=== PATIENT | female | born 1970 | race Caucasian/White ===

== ENCOUNTER 2021-02-05 08:13 | Day surgery (SDC) | payer BC ==
[2021-02-03 09:52] VITALS: BMI 24.1
[2021-02-05] MEDS ORDERED: LIDOCAINE HCL/PF 2% SDV 5ML VIAL ONE (08:25)
[2021-02-05] MEDS ORDERED: PROPOFOL 20 ML ONE ×2 (08:25)
[2021-02-05 11:25] VITALS: BP 107/78; TEMP 97.7
[2021-02-05 11:28] VITALS: PULSE 72
== END 2021-02-05 11:20 | disposition home or self-care (01) ==
LOC: FASU-ENDO 08:13
PROVIDERS: ATTEND Internal Medicine Gastroenterology
PROC: 0DJD8ZZ Inspection of Lower Intestinal Tract, Via Natural or Artificial Opening Endoscopic (ICD-10-PCS; principal; 2021-02-05 10:20)
DX: Z12.11 Encounter for screening for malignant neoplasm of colon (principal)
CPT/HCPCS: 81025